=== PATIENT | female | born 1965 | race Caucasian/White ===

== ENCOUNTER 2016-09-28 16:35 | Emergency (ER) | payer MEDICARE, MEDICAID ==
[2016-09-28] MEDS ORDERED: LORAZEPAM 0.5 MG TAB ONE (22:45)
== END 2016-09-28 22:48 | disposition home or self-care (01) ==
LOC: ER 16:35
CPT/HCPCS: 36415; 71010; 80053; 81001; 82553; 82947; 84484; 85025; 87088; 93005

== ENCOUNTER 2016-10-03 11:19 | Emergency (ER) | payer MEDICARE, MEDICAID ==
[2016-10-03] MEDS ORDERED: SODIUM CHLORIDE 0.9% 1,000 ML ONE (11:59)
[2016-10-03] MEDS ORDERED: NALOXONE 2 MG/2 ML SYRINGE ONE (11:59)
== END 2016-10-03 15:17 | disposition home or self-care (01) ==
LOC: ER 11:19
DX: R41.82 Altered mental status, unspecified (principal); G40.209 Localization-related (focal) (partial) symptomatic epilepsy and epileptic syndromes with complex partial seizures, not intractable, without status epilepticus; I10 Essential (primary) hypertension; E03.9 Hypothyroidism, unspecified; E78.00 Pure hypercholesterolemia, unspecified; J45.909 Unspecified asthma, uncomplicated; Z79.51 Long term (current) use of inhaled steroids; Z79.01 Long term (current) use of anticoagulants; Z79.899 Other long term (current) drug therapy
CPT/HCPCS: 36415; 70450; 80053; 81001; 82140; 82553; 82947; 84439; 84443; 84484; 85025; 85610; 93005; 96361; 96374; 99285; G0479; G0480; 80307; 80320; 80329